=== PATIENT | male | born 1980 | race Caucasian/White ===

== ENCOUNTER 2021-08-16 06:53 | Emergency (ER) | payer OTHER ==
[2021-08-16 07:15] VITALS: BP 117/75; PULSE 65; TEMP 98.4; BMI 30.1
[2021-08-16] MEDS ORDERED: CEPHALEXIN MONOHYDRATE 500 MG CAPSULE (UD) PO ONE (07:34)
[2021-08-16] MEDS ORDERED: DIPHTH,PERTUSS(ACELL),TET 0.5 ML DISP.SYRIN IM ONE ×2 (07:34→07:35)
[2021-08-16] MEDS ORDERED: CEPHALEXIN MONOHYDRATE 500 MG CAPSULE (UD) ONE (07:34)
== END 2021-08-16 07:50 | disposition home or self-care (01) ==
LOC: JER 06:53
PROC: 3E0234Z Introduction of Serum, Toxoid and Vaccine into Muscle, Percutaneous Approach (ICD-10-PCS; principal; 2021-08-16)
DX: S61.213A Laceration without foreign body of left middle finger without damage to nail, initial encounter (principal); W29.8XXA Contact with other powered hand tools and household machinery, initial encounter; Y92.9 Unspecified place or not applicable
CPT/HCPCS: 90715; 99283-25

== ENCOUNTER 2023-05-27 18:42 | Emergency (ER) | payer OTHER ==
[2023-05-27 18:48] VITALS: BP 134/91; PULSE 79; RESP 18; TEMP 98.2; BMI 28.7
[2023-05-27] MEDS ORDERED: IBUPROFEN 600 MG TABLET (FP) PO ONE ×2 (19:48→19:50)
== END 2023-05-27 19:56 | disposition home or self-care (01) ==
LOC: JERFT 18:42
DX: S61.432A Puncture wound without foreign body of left hand, initial encounter (principal); R22.32 Localized swelling, mass and lump, left upper limb; M79.642 Pain in left hand; W45.0XXA Nail entering through skin, initial encounter; Y99.0 Civilian activity done for income or pay
CPT/HCPCS: 73130-TC-LT-FY; 99283-25